=== PATIENT | male | born 1940 | race Caucasian/White ===

== ENCOUNTER 2017-05-11 08:14 | Inpatient (IN) | payer OTHER ==
[2017-05-11] VITALS (19 sets, daily range): BP systolic 113–162; BP diastolic 58–73
[~2017-05-11] VITALS: Ht 172.7 cm; Wt 90.7 kg
[~2017-05-11 08:14] MED LIST: ASCORBIC ACID500 M1 PO; ASPIRIN81 M2 PO; CALCIUM 500 MG1 EACH PO; CLEOCIN300 MG PO; COREG25 M1 PO; COUMADIN4 MG PO; FISH OIL 500 M1 EAC4 PO; FOLIC ACID0.4 MG PO; NITROSTAT0.3 MG SL; PRAVACHOL20 MG PO
[2017-05-11 15:43] LABS: TROP-I INTERPRETATION NEGATIVE; TROPONIN-I < 0.01 ng/mL (0.0-0.30)
[2017-05-11 22:08] LABS: METH RESISTANT S AUREUS PCR NEGATIVE (NEGATIVE)
[2017-05-11 22:24] LABS: PROBE CHECK PASS; SPECIMEN PROCESSING CONTROL PASS
[2017-05-12] VITALS (27 sets, daily range): BP systolic 97–170; BP diastolic 53–75
[2017-05-12 04:15] LABS: BASOPHIL COUNT 0.1 K/uL (0-0.1); EOSINOPHIL (%) 1.5 % (0-5); EOSINOPHIL COUNT 0.1 K/uL (0-0.3); HEMATOCRIT 40.6 % (38.0-50.0); IMMATURE GRANULOCYTE (%) 0.6 % (0.0-0.7); IMMATURE GRANULOCYTE COUNT 0.1 K/uL; INSTRUMENT ABS NEUTROPHIL CT 6.5 K/uL; LYMPHOCYTE COUNT 1.3 K/uL (1.0-2.8); MCH 30.1 PG (29.0-34.0); MCHC 33.7 G/DL (30.0-36.0); MCV 89.2 FL (86-99); MEAN PLAT.VOLUME 10.1 uM^3 (9.0-12.4); MONOCYTE (%) 8.8 % (3-12); MONOCYTE COUNT 0.8 K/uL (0-0.8); NEUTROPHIL COUNT 6.5 K/uL (1.8-6.4); RBC DIS.WIDTH-CV 14.1 % (11.8-14.6); RBC DIS.WIDTH-SD 45.4 % (39-53); RED BLOOD COUNT 4.55 M/uL (4.00-5.50); WHITE BLOOD COUNT 8.8 K/uL (4.1-10.2)
[2017-05-12 04:17] LABS: PLATELET COUNT 199 K/uL (156-360)
[2017-05-12 04:31] LABS: CHLORIDE 105 mEq/L (99-109); POTASSIUM 4.6 mEq/L (3.7-5.4); SODIUM 137 mEq/L (136-147)
[2017-05-12 04:33] LABS: GLUCOSE 139 mg/dL (70-99)
[2017-05-12 04:34] LABS: ANION GAP 9 MEQ/L (2-14)
[2017-05-12 04:37] LABS: GFR ESTIMATE (CALCULATED) > 59 mL/min/
[2017-05-12 04:38] LABS: UREA NITROGEN (BUN) 14 mg/dL (9-23)
[2017-05-12 04:47] LABS: TROP-I INTERPRETATION POSITIVE; TROPONIN-I 3.14 ng/mL (0.0-0.30)
[2017-05-12 15:48] LABS: TROPONIN-I 3.24 ng/mL (0.0-0.30)
[2017-05-12 15:49] LABS: TROP-I INTERPRETATION POSITIVE
[2017-05-13] VITALS (12 sets, daily range): BP systolic 109–150; BP diastolic 57–73
[2017-05-13 08:40] LABS: PROTHROMBIN TIME 10.4 (9.2-11.2)
[2017-05-13 09:07] LABS: ANION GAP 11 MEQ/L (2-14); CHLORIDE 104 MEQ/L (99-109); POTASSIUM 4.9 MEQ/L (3.7-5.4); SAMPLE HEMOLYSIS CHECK 1; SAMPLE ICTERIC CHECK 0; SAMPLE LIPEMIA CHECK 0; SODIUM 135 MEQ/L (136-147)
[2017-05-13 09:12] LABS: GFR ESTIMATE (CALCULATED) > 59 mL/min/; GLUCOSE 138 mg/dL (70-99); UREA NITROGEN (BUN) 20 mg/dL (9-23)
[2017-05-13] MEDS ORDERED: LISINOPRIL2.5 MG PO (11:02)
[2017-05-13] MEDS ORDERED: CLOPIDOGREL75 MG PO (11:02)
[2017-05-13] MEDS ORDERED: ASPIRIN EC325 MG PO (11:02)
[2017-05-13] MEDS ORDERED: PRAVASTATIN SOD40 MG PO (11:02)
== END 2017-05-13 11:40 | disposition home or self-care (01) | DRG 248 ==
LOC: CATH 08:14 → 2SOUTH 14:35 → 4WEST 14:35
PROVIDERS: Internal Medicine Cardiovascular Disease; Internal Medicine Interventional Cardiology
DX: I25.119 Atherosclerotic heart disease of native coronary artery with unspecified angina pectoris (principal); I25.42 Coronary artery dissection; J44.9 Chronic obstructive pulmonary disease, unspecified; I34.0 Nonrheumatic mitral (valve) insufficiency; I10 Essential (primary) hypertension; E78.5 Hyperlipidemia, unspecified; E66.9 Obesity, unspecified; Z86.718 Personal history of other venous thrombosis and embolism; Z79.01 Long term (current) use of anticoagulants; Z68.30 Body mass index [BMI] 30.0-30.9, adult
CPT/HCPCS: 71010; 80048; 83880; 84484; 85025; 85347; 85610; 87641; 93005; 93306; 94640; 94640 76; 94799; 99202; C1725; C1769; C1874; C1887; C1894; J1644; J1940; J2250; J3010; J3246

== ENCOUNTER 2017-06-02 07:33 | Inpatient (IN) | payer OTHER ==
[~2017-06-02] VITALS: Ht 172.7 cm; Wt 94.5 kg
[~2017-06-02 07:33] MED LIST changes: +ASPIR-LOW81 MG PO; +ASPIRIN EC325 MG PO; +CLOPIDOGREL75 MG PO; +FLUCONAZOLE100 MG PO; +KETOCONAZOLE60 GM TP; +LISINOPRIL2.5 MG PO; +NITROGLYCERIN0.4 MG SL; +PRAVASTATIN SOD40 MG PO
[2017-06-02 10:46] LABS: INTER. NORMALIZED RATIO 1.2; PROTHROMBIN TIME 12.7 (9.2-11.2)
[2017-06-02 16:55] VITALS: BP 145/65
[2017-06-02 17:59] VITALS: BP 146/72
[2017-06-02 20:52] VITALS: BP 132/64
[2017-06-02 22:55] VITALS: BP 132/61
[2017-06-03 04:05] VITALS: BP 135/63
[2017-06-03 06:20] LABS: TROP-I INTERPRETATION INDETERMINATE
[2017-06-03 06:21] LABS: ANION GAP 8 MEQ/L (2-14); CHLORIDE 109 MEQ/L (99-109); GFR ESTIMATE (CALCULATED) > 59 mL/min/; GLUCOSE 119 mg/dL (70-99); POTASSIUM 4.6 MEQ/L (3.7-5.4); SAMPLE HEMOLYSIS CHECK 0; SAMPLE ICTERIC CHECK 0; SAMPLE LIPEMIA CHECK 0; SODIUM 139 MEQ/L (136-147); UREA NITROGEN (BUN) 16 mg/dL (9-23)
[2017-06-03 06:36] LABS: BASOPHIL COUNT 0.1 K/uL (0-0.1); EOSINOPHIL (%) 8.5 % (0-5); EOSINOPHIL COUNT 0.5 K/uL (0-0.3); HEMATOCRIT 36.3 % (38.0-50.0); IMMATURE GRANULOCYTE (%) 0.2 % (0.0-0.7); INSTRUMENT ABS NEUTROPHIL CT 4.3 K/uL; LYMPHOCYTE COUNT 0.7 K/uL (1.0-2.8); MCH 31.4 PG (29.0-34.0); MCHC 33.9 G/DL (30.0-36.0); MCV 92.6 FL (86-99); MEAN PLAT.VOLUME 10.9 uM^3 (9.0-12.4); MONOCYTE (%) 10.1 % (3-12); MONOCYTE COUNT 0.6 K/uL (0-0.8); NEUTROPHIL COUNT 4.3 K/uL (1.8-6.4); PLAT.SUFFICIENCY DECREASED; RBC DIS.WIDTH-SD 50.7 % (39-53); RED BLOOD COUNT 3.92 M/uL (4.00-5.50); WHITE BLOOD COUNT 6.3 K/uL (4.1-10.2)
[2017-06-03 06:40] LABS: PLATELET COUNT 138 K/uL (156-360)
[2017-06-03 07:40] VITALS: BP 123/60
[2017-06-03 11:58] VITALS: BP 133/63
[2017-06-03 15:36] VITALS: BP 115/59
== END 2017-06-03 16:00 | disposition home or self-care (01) | DRG 247 ==
LOC: CATH 07:33 → 2SOUTH 14:10 → 4EAST 16:48
PROVIDERS: Internal Medicine Interventional Cardiology
DX: I25.10 Atherosclerotic heart disease of native coronary artery without angina pectoris (principal); I25.82 Chronic total occlusion of coronary artery; J44.9 Chronic obstructive pulmonary disease, unspecified; I34.0 Nonrheumatic mitral (valve) insufficiency; E78.5 Hyperlipidemia, unspecified; I10 Essential (primary) hypertension; Z68.31 Body mass index [BMI] 31.0-31.9, adult; I49.3 Ventricular premature depolarization; E66.9 Obesity, unspecified
CPT/HCPCS: 80048; 84484; 85025; 85347; 85610; 93005; C1725; C1769; C1874; C1887; C1894; J1644; J2250; J3010; J7030

== ENCOUNTER 2017-11-03 15:17 | Inpatient (IN) | payer OTHER ==
[~2017-11-03] VITALS: Ht 172.7 cm; Wt 92.5 kg
[2017-11-03 16:14] LABS: MCH 30.4 PG (29.0-34.0); MCHC 33.7 G/DL (30.0-36.0); MCV 90.1 FL (86-99); MEAN PLAT.VOLUME 11.5 uM^3 (9.0-12.4); PLATELET COUNT 144 K/uL (156-360); RBC DIS.WIDTH-CV 13.9 % (11.8-14.6); RBC DIS.WIDTH-SD 46.4 % (39-53); RED BLOOD COUNT 4.77 M/uL (4.00-5.50)
[2017-11-03 16:23] LABS: CHLORIDE 105 mEq/L (99-109); POTASSIUM 4.7 mEq/L (3.7-5.4); SODIUM 141 mEq/L (136-147)
[2017-11-03 16:24] LABS: GLUCOSE 208 mg/dL (70-99)
[2017-11-03 16:26] LABS: ANION GAP 14 MEQ/L (2-14)
[2017-11-03 16:28] LABS: GFR ESTIMATE (CALCULATED) 35 mL/min/ (58.99-99999)
[2017-11-03 16:29] LABS: UREA NITROGEN (BUN) 46 mg/dL (9-23)
[2017-11-03 18:28] LABS: TROP-I INTERPRETATION POSITIVE
[2017-11-03 19:27] LABS: TROP-I INTERPRETATION POSITIVE
[2017-11-03 19:29] LABS: TROPONIN-I 2.06 ng/mL (0.0-0.30)
[2017-11-03] MEDS ORDERED: FLONASE16 G1 BOTH NARES (20:21)
[2017-11-03] MEDS ORDERED: LISINOPRIL5 MG PO (20:23)
[2017-11-03] MEDS ORDERED: JANTOVEN4 MG PO (20:23)
[2017-11-03] MEDS ORDERED: CARVEDILOL25 MG PO (20:23)
[2017-11-03] MEDS ORDERED: VITAMIN D2000 UNI1 PO (20:26)
[2017-11-03 22:35] LABS: INTER. NORMALIZED RATIO 1.4; PROTHROMBIN TIME 16.3 SEC (10.2-12.9)
[2017-11-04] VITALS (8 sets, daily range): BP systolic 107–149; BP diastolic 52–68
[2017-11-04 01:24] LABS: TROP-I INTERPRETATION POSITIVE
[2017-11-04 01:31] LABS: TROPONIN-I 1.69 ng/mL (0.0-0.30)
[2017-11-04 06:21] LABS: INTER. NORMALIZED RATIO 1.5; PROTHROMBIN TIME 16.8 SEC (10.2-12.9)
[2017-11-04 06:39] LABS: TROPONIN-I 1.34 ng/mL (0.0-0.30)
[2017-11-04 06:40] LABS: TROP-I INTERPRETATION POSITIVE
[2017-11-04 09:46] LABS: ADD MIUA? NO; BILIRUBIN NEGATIVE; BLOOD NEGATIVE; COLOR YELLOW ((YELLOW)); GLUCOSE (STRIP) NEGATIVE; KETONES NEGATIVE; LEUKOCYTES NEGATIVE; NITRITE NEGATIVE; PROTEIN (STRIP) 30; SPECIFIC GRAVITY 1.026 (1.000-1.030); UCUL ADDED? NO; UROBILINOGEN 0.2 MG/DL (0.2-1.0)
[2017-11-05 04:22] VITALS: BP 128/59
[2017-11-05 05:31] LABS: MCH 29.6 PG (29.0-34.0); MCHC 32.6 G/DL (30.0-36.0); MCV 90.9 FL (86-99); MEAN PLAT.VOLUME 11.8 uM^3 (9.0-12.4); PLATELET COUNT 108 K/uL (156-360); RBC DIS.WIDTH-CV 13.9 % (11.8-14.6); RBC DIS.WIDTH-SD 46.6 % (39-53); RED BLOOD COUNT 3.85 M/uL (4.00-5.50); WHITE BLOOD COUNT 9.9 K/uL (4.1-10.2)
[2017-11-05 05:57] LABS: ANION GAP 11 MEQ/L (2-14); CHLORIDE 109 MEQ/L (99-109); GLUCOSE 172 mg/dL (70-99); POTASSIUM 4.7 MEQ/L (3.7-5.4); SAMPLE HEMOLYSIS CHECK 0; SAMPLE ICTERIC CHECK 0; SAMPLE LIPEMIA CHECK 0; SODIUM 139 MEQ/L (136-147); UREA NITROGEN (BUN) 47 mg/dL (9-23)
[2017-11-05 05:59] LABS: INTER. NORMALIZED RATIO 1.8; PROTHROMBIN TIME 20.2 SEC (10.2-12.9)
[2017-11-05 06:01] LABS: GFR ESTIMATE (CALCULATED) 57 mL/min/ (58.99-99999)
[2017-11-05 07:00] VITALS: BP 120/58
[2017-11-05 11:25] VITALS: BP 182/79
[2017-11-05] MEDS ORDERED: BENADRYL25 MG PO (12:52)
== END 2017-11-05 14:15 | disposition home or self-care (01) | DRG 682 ==
LOC: EME 15:17 → EDOF 20:12 → ENRESERV 20:19 → EDOF 20:50 → 4EAST 20:50 → EDOF 20:50 → CANRESERV 20:54 → ENRESERV 20:54 → 4EAST 11-04 00:25
PROVIDERS: Family Medicine; Internal Medicine Cardiovascular Disease; Nurse Practitioner Family
DX: N17.9 Acute kidney failure, unspecified (principal); I21.A1 Myocardial infarction type 2; L27.0 Generalized skin eruption due to drugs and medicaments taken internally; T36.8X5A Adverse effect of other systemic antibiotics, initial encounter; I48.0 Paroxysmal atrial fibrillation; I95.9 Hypotension, unspecified; J44.9 Chronic obstructive pulmonary disease, unspecified; E11.9 Type 2 diabetes mellitus without complications; I10 Essential (primary) hypertension; E78.5 Hyperlipidemia, unspecified; I25.10 Atherosclerotic heart disease of native coronary artery without angina pectoris; K21.9 Gastro-esophageal reflux disease without esophagitis; I49.40 Unspecified premature depolarization; E66.9 Obesity, unspecified; Z68.30 Body mass index [BMI] 30.0-30.9, adult; Z79.02 Long term (current) use of antithrombotics/antiplatelets; Z79.01 Long term (current) use of anticoagulants; Z86.718 Personal history of other venous thrombosis and embolism; Z87.891 Personal history of nicotine dependence; Z95.5 Presence of coronary angioplasty implant and graft
CPT/HCPCS: 36415; 71020; 80048; 81003; 83880; 84484; 85027; 85610; 93005; 94640; 99281; 99285; J1200; J7030; J7512; S0028

== ENCOUNTER 2018-05-24 06:59 | Day surgery (SDC) | payer OTHER ==
[~2018-05-24] VITALS: Ht 172.7 cm; Wt 90.2 kg
[~2018-05-24 06:59] MED LIST changes: +BENADRYL25 MG PO; +CARVEDILOL25 MG PO; +FLONASE16 G1 BOTH NARES; +JANTOVEN4 MG PO; +LISINOPRIL5 MG PO; +VITAMIN D2000 UNI1 PO
[2018-05-24 07:46] VITALS: BP 149/67
[2018-05-24 08:05] LABS: INTER. NORMALIZED RATIO 1.1
[2018-05-24 08:08] LABS: PTT 26.7 SEC (25-37)
[2018-05-24 12:05] VITALS: BP 167/71
[2018-05-24 12:32] VITALS: BP 143/67
== END 2018-05-24 12:48 | disposition home or self-care (01) ==
LOC: SDC 06:59
PROVIDERS: Ophthalmology
DX: H35.81 Retinal edema (principal); H35.372 Puckering of macula, left eye; I10 Essential (primary) hypertension; I48.91 Unspecified atrial fibrillation; J44.9 Chronic obstructive pulmonary disease, unspecified; I73.9 Peripheral vascular disease, unspecified; Z88.0 Allergy status to penicillin; Z88.8 Allergy status to other drugs, medicaments and biological substances; Z79.02 Long term (current) use of antithrombotics/antiplatelets; Z86.718 Personal history of other venous thrombosis and embolism; Z87.891 Personal history of nicotine dependence
CPT/HCPCS: 85610; 85730; J0330; J0690; J0713; J3300